=== PATIENT | male | born 1965 | race Caucasian/White ===

== ENCOUNTER 2020-11-24 14:12 | Inpatient (IN) | payer OTHER ==
[2020-11-24 15:48] LABS: EOS % 1.4 % (0-4.5); HEMATOCRIT 32.1 % (35.4-49); HEMOGLOBIN 11.1 GM/dL (11.7-16.9); LYMPH % 19.2 % (8-40); MCHC 34.8 g/dl (32.0-35.9); MEAN CELL VOLUME 83.3 fl (80-96); MEAN PLT VOLUME 9.1 fl (7.5-11.1); MONO % 7.3 % (3.8-10.2); NEUT % 72.1 % (42.8-82.8); PLATELET COUNT 127 K/MM3 (134-434); RBC 3.85 M/mm3 (4.00-5.60); RDW 13.1 % (11.9-15.9); WHITE BLOOD COUNT 5.8 K/mm3 (4.0-10.0)
[2020-11-24 15:57] LABS: INR 1.1 (0.83-1.09); PROTHROMBIN TIME (PATIENT) 13.5 SEC (9.7-13.0)
[2020-11-24 16:00] LABS: ACTIVATED PTT 31.4 SECONDS (25.2-36.5)
[2020-11-24 16:06] LABS: POTASSIUM 4.3 mmol/L (3.5-5.1)
[2020-11-24 16:08] LABS: CALCIUM 8.6 mg/dL (8.5-10.1)
[2020-11-24 16:09] LABS: ALBUMIN 3.7 g/dl (3.4-5.0); BLOOD UREA NITROGEN 26.9 mg/dL (7-18)
[2020-11-24 16:12] LABS: CREATININE 0.9 mg/dL (0.55-1.3)
[2020-11-24 16:13] LABS: BILIRUBIN,TOTAL 0.6 mg/dL (0.2-1); TOT PROT 6.3 g/dl (6.4-8.2)
[2020-11-24] MEDS: SODIUM CHLORIDE 1,000 ML IV SCH (17:47)
[2020-11-25 01:18] LABS: HEMATOCRIT 28.4 % (35.4-49); HEMOGLOBIN 9.8 GM/dL (11.7-16.9); MCHC 34.6 g/dl (32.0-35.9); MEAN CELL VOLUME 83.7 fl (80-96); MEAN PLT VOLUME 8.7 fl (7.5-11.1); PLATELET COUNT 99 K/MM3 (134-434); RBC 3.39 M/mm3 (4.00-5.60); RDW 13.3 % (11.9-15.9); WHITE BLOOD COUNT 4.1 K/mm3 (4.0-10.0)
[2020-11-25 04:43] VITALS: BMI 24.0
[2020-11-25] MEDS: SODIUM CHLORIDE 1,000 ML IV SCH (05:54)
[2020-11-25] MEDS: DEXTROSE 5%-0.45% SALINE 1,000 ML IV SCH (08:46)
[2020-11-25] MEDS ORDERED: PANTOPRAZOLE 40 MG TABLET PO SCH (10:00)
[2020-11-25] MEDS ORDERED: PANTOPRAZOLE SODIUM 40 MG VIAL IVPUSH SCH (10:00)
[2020-11-25 10:16] LABS: EOS % 1.9 % (0-4.5); HEMATOCRIT 29.7 % (35.4-49); HEMOGLOBIN 10.6 GM/dL (11.7-16.9); MCH 29.3 pg (25.7-33.7); MCHC 35.5 g/dl (32.0-35.9); MEAN CELL VOLUME 82.6 fl (80-96); MEAN PLT VOLUME 9.3 fl (7.5-11.1); NEUT % 69.1 % (42.8-82.8); PLATELET COUNT 113 K/MM3 (134-434); RDW 12.7 % (11.9-15.9); WHITE BLOOD COUNT 3.7 K/mm3 (4.0-10.0)
[2020-11-25 10:30] LABS: POTASSIUM 3.8 mmol/L (3.5-5.1)
[2020-11-25 10:44] LABS: BLOOD UREA NITROGEN 19.2 mg/dL (7-18); CALCIUM 7.8 mg/dL (8.5-10.1); MAGNESIUM 1.9 mg/dL (1.8-2.4)
[2020-11-25 10:45] LABS: ALBUMIN 3.2 g/dl (3.4-5.0)
[2020-11-25 10:47] LABS: CREATININE 0.8 mg/dL (0.55-1.3); PHOSPHOROUS 3.7 mg/dL (2.5-4.9)
[2020-11-25 10:49] LABS: TOT PROT 5.6 g/dl (6.4-8.2)
[2020-11-25 10:51] LABS: BILIRUBIN,TOTAL 0.6 mg/dL (0.2-1)
[2020-11-25] MEDS: PANTOPRAZOLE SODIUM 80 MG in SODIUM CHLORIDE 100 ML IVPB SCH (20:38)
[2020-11-26] MEDS: DEXTROSE 5%-0.45% SALINE 1,000 ML IV SCH ×2 (00:29→17:29)
[2020-11-26] MEDS: PANTOPRAZOLE SODIUM 80 MG in SODIUM CHLORIDE 100 ML IVPB SCH ×3 (02:00→13:33)
[2020-11-26 08:37] LABS: EOS % 1.7 % (0-4.5); HEMATOCRIT 28.3 % (35.4-49); HEMOGLOBIN 10.2 GM/dL (11.7-16.9); LYMPH % 18.5 % (8-40); MCH 29.5 pg (25.7-33.7); MEAN CELL VOLUME 81.9 fl (80-96); MEAN PLT VOLUME 9.8 fl (7.5-11.1); MONO % 7.8 % (3.8-10.2); PLATELET COUNT 119 K/MM3 (134-434); RBC 3.46 M/mm3 (4.00-5.60); RDW 13.3 % (11.9-15.9); WHITE BLOOD COUNT 4.2 K/mm3 (4.0-10.0)
[2020-11-26 08:54] LABS: POTASSIUM 3.9 mmol/L (3.5-5.1)
[2020-11-26] MEDS ORDERED: IRON SUCROSE INJECTION 200 MG in SODIUM CHLORIDE 90 ML IVPB ONE (09:00)
[2020-11-26 09:08] LABS: CALCIUM 7.8 mg/dL (8.5-10.1)
[2020-11-26 09:09] LABS: ALBUMIN 3.1 g/dl (3.4-5.0); BLOOD UREA NITROGEN 10.9 mg/dL (7-18)
[2020-11-26 09:12] LABS: CREATININE 0.9 mg/dL (0.55-1.3)
[2020-11-26 09:14] LABS: TOT PROT 5.5 g/dl (6.4-8.2)
[2020-11-26] MEDS ORDERED: PT OWN MED DRAWER 7, Y5N ONE (09:16)
[2020-11-27] MEDS: PANTOPRAZOLE SODIUM 80 MG in SODIUM CHLORIDE 100 ML IVPB SCH ×3 (00:28→12:40)
[2020-11-27 09:20] LABS: BASO % 0.1 % (0-2.0); EOS % 1.9 % (0-4.5); HEMATOCRIT 29.1 % (35.4-49); HEMOGLOBIN 10.3 GM/dL (11.7-16.9); MCH 29.2 pg (25.7-33.7); MCHC 35.3 g/dl (32.0-35.9); MEAN CELL VOLUME 82.9 fl (80-96); MEAN PLT VOLUME 9.6 fl (7.5-11.1); PLATELET COUNT 113 K/MM3 (134-434); RBC 3.52 M/mm3 (4.00-5.60); RDW 13.3 % (11.9-15.9)
[2020-11-27 09:30] LABS: POTASSIUM 3.9 mmol/L (3.5-5.1)
[2020-11-27 09:36] LABS: ALBUMIN 3.2 g/dl (3.4-5.0); BLOOD UREA NITROGEN 9.4 mg/dL (7-18); CALCIUM 8.3 mg/dL (8.5-10.1)
[2020-11-27 09:41] LABS: BILIRUBIN,TOTAL 0.6 mg/dL (0.2-1); TOT PROT 5.6 g/dl (6.4-8.2)
[2020-11-27 15:39] VITALS: BP 122/60; PULSE 78; TEMP 99
== END 2020-11-27 18:17 | disposition home or self-care (01) | DRG 378 ==
LOC: JER 14:12 → JERBED 16:38 → J5S 11-25 03:08
PROVIDERS: ADMIT Internal Medicine
PROC: 0W3P8ZZ Control Bleeding in Gastrointestinal Tract, Via Natural or Artificial Opening Endoscopic (ICD-10-PCS; 2020-11-25)
PROC: 0DB68ZX Excision of Stomach, Via Natural or Artificial Opening Endoscopic, Diagnostic (ICD-10-PCS; principal; 2020-11-25 12:00)
DX: K31.82 Dieulafoy lesion (hemorrhagic) of stomach and duodenum (principal); D62 Acute posthemorrhagic anemia; K29.00 Acute gastritis without bleeding; K29.80 Duodenitis without bleeding; K57.90 Diverticulosis of intestine, part unspecified, without perforation or abscess without bleeding; F10.10 Alcohol abuse, uncomplicated
CPT/HCPCS: 36415; 71045-TC-FY; 80053; 82272; 82962; 83735; 84100; 85025; 85027; 85610; 85730; 86850; 86900; 86901; 88305-TC; 93005; 93010; 99285-25; C9803; J1756; U0003

== ENCOUNTER 2021-04-10 05:04 | Day surgery (SDC) | payer OTHER ==
[2021-04-07 12:36] VITALS: BMI 23.5
[2021-04-10 07:19] VITALS: TEMP 98.1
[2021-04-10 09:34] VITALS: BP 124/77; PULSE 55
== END 2021-04-10 09:40 | disposition home or self-care (01) ==
LOC: JASU-ENDO 05:04
PROVIDERS: ATTEND Internal Medicine Gastroenterology
PROC: 0DBN8ZX Excision of Sigmoid Colon, Via Natural or Artificial Opening Endoscopic, Diagnostic (ICD-10-PCS; 2021-04-10)
PROC: 0DBK8ZX Excision of Ascending Colon, Via Natural or Artificial Opening Endoscopic, Diagnostic (ICD-10-PCS; principal; 2021-04-10 08:00)
DX: Z12.11 Encounter for screening for malignant neoplasm of colon (principal); D12.2 Benign neoplasm of ascending colon; D12.5 Benign neoplasm of sigmoid colon; K64.8 Other hemorrhoids
CPT/HCPCS: 88305-TC